=== PATIENT | male | born 1955 | race Caucasian/White ===

== ENCOUNTER → 2020-09-02 14:20 | Outpatient (BNVA) | payer OTHER, SELFPAY | PROVIDERS: PCP Student in an Organized Health Care Education/Training Program; Visit Provider Nurse Practitioner | DX: Z13.89 Encounter for screening for other disorder (principal) | CPT/HCPCS: Q3014 ==

== ENCOUNTER 2021-01-15 08:40 | Outpatient (REF) | payer OTHER, SELFPAY ==
[2021-01-15 10:35] LABS: PSA,Total (Free>4and<10) 12.81 ng/mL (0.00-4.00)
== END 2021-01-15 08:41 | disposition home or self-care (01) ==
LOC: HO.LAB 08:40
PROVIDERS: PCP Student in an Organized Health Care Education/Training Program; Visit Provider Urology
DX: R97.20 Elevated prostate specific antigen [PSA] (principal)
CPT/HCPCS: 36415; 84153

== ENCOUNTER 2021-03-06 08:02 | Outpatient (REF) | payer OTHER, SELFPAY | END 2021-03-06 08:03 | disposition home or self-care (01) | LOC: HO.LAB 08:02 | PROVIDERS: PCP Student in an Organized Health Care Education/Training Program; Visit Provider Urology | DX: R97.20 Elevated prostate specific antigen [PSA] (principal) | CPT/HCPCS: 36415; 84153 ==

== ENCOUNTER → 2021-03-12 15:53 | Outpatient (BNVA) | payer OTHER, SELFPAY | PROVIDERS: Visit Provider Urology | DX: Z13.89 Encounter for screening for other disorder (principal) | CPT/HCPCS: 99212 ==

== ENCOUNTER → 2021-03-21 14:45 | Outpatient (BNVA) | payer OTHER, SELFPAY | PROVIDERS: PCP Student in an Organized Health Care Education/Training Program; Visit Provider Nurse Practitioner | DX: D12.6 Benign neoplasm of colon, unspecified (principal); R14.0 Abdominal distension (gaseous); K59.04 Chronic idiopathic constipation; K21.9 Gastro-esophageal reflux disease without esophagitis | CPT/HCPCS: Q3014 ==

== ENCOUNTER 2021-07-10 08:38 | Outpatient (REF) | payer OTHER, SELFPAY ==
[2021-07-10 09:49] LABS: PSA,Total (Free>4and<10) 6.61 ng/mL (0.00-4.00)
[2021-07-11 11:22] LABS: Free Prostate Spec Ag 0.7 ng/mL; Percent Free Prostate Spec Ag 10 % (calc) (>25)
== END 2021-07-10 08:39 | disposition home or self-care (01) ==
LOC: HO.LAB 08:38
PROVIDERS: Visit Provider Urology
DX: Z12.5 Encounter for screening for malignant neoplasm of prostate (principal); N13.8 Other obstructive and reflux uropathy; N40.1 Benign prostatic hyperplasia with lower urinary tract symptoms; R97.20 Elevated prostate specific antigen [PSA]
CPT/HCPCS: 36415; 84153; 84154

== ENCOUNTER → 2021-12-26 15:16 | Outpatient (BNVA) | payer OTHER, SELFPAY | PROVIDERS: PCP Student in an Organized Health Care Education/Training Program; Visit Provider Urology | DX: N40.1 Benign prostatic hyperplasia with lower urinary tract symptoms (principal); N13.8 Other obstructive and reflux uropathy; R97.20 Elevated prostate specific antigen [PSA] | CPT/HCPCS: Q3014 ==

== ENCOUNTER 2022-01-01 10:57 | Outpatient (REF) | payer OTHER, SELFPAY ==
[2022-01-01 13:03] LABS: MANUAL DIFF FLAG NO
[2022-01-01 13:27] LABS: Basophils Percent Auto 0.4 % (0-2); Eosinophils Absolute Auto 0.4 X10*3/uL (0.0-0.4); Eosinophils Percent Auto 3.4 % (0-4); Hematocrit 38.8 % (42.0-52.0); Hemoglobin 12.7 g/dl (14.0-18.0); Imm Gran Abs Auto 0.03 X10*3/uL (0.00-0.03); Imm Gran Pct Auto 0.3 % (0.0-0.4); Lymphocytes Absolute Auto 3.7 X10*3/uL (1.2-4.9); Lymphocytes Percent Auto 35.9 % (20-40); Mean Corpuscular HGB Conc 32.7 g/dl (31.0-36.0); Mean Corpuscular Hemoglobin 28.7 pg (27.0-33.0); Mean Corpuscular Volume 87.6 fL (80.0-98.0); Mean Platelet Volume 9.9 fL (9.4-12.4); Monocytes Absolute Auto 0.6 X10*3/uL (0.1-1.2); Monocytes Percent Auto 5.7 % (2-11); Neutrophils Absolute Auto 5.6 x10*3/uL (2.0-8.3); Neutrophils Percent Auto 54.3 % (45-73); Platelet Count 363 X10*3/uL (160-400); Red Blood Count 4.43 X10*6/uL (4.60-5.80); Red Cell Distribution Width 15.9 % (11.0-16.0); White Blood Count 10.3 X10*3/uL (4.8-10.8)
[2022-01-01 13:58] LABS: Alanine Aminotransferase 24 U/L (0-40); Albumin Level 4.6 g/dL (3.5-5.0); Alkaline Phosphatase 103 U/L (39-117); Anion Gap 13 (12-20); Aspartate Amino Transferase 19 U/L (5-37); Bilirubin Total 0.2 mg/dL (0.0-1.0); Blood Urea Nitrogen 17 mg/dL (9-16); Calcium 10.8 mg/dL (8.4-10.2); Carbon Dioxide 29 mmol/L (22-29); Chloride 101 mmol/L (96-108); Estimated Glomerular Filt Rate > 60; Glucose Random 153 mg/dL (60-115); Sodium 138 mmol/L (135-145); Total Protein 7.6 g/dL (6.5-8.0)
== END 2022-01-01 10:58 | disposition home or self-care (01) ==
LOC: HO.LAB 10:57
PROVIDERS: PCP Student in an Organized Health Care Education/Training Program; Visit Provider Nurse Practitioner
DX: D12.6 Benign neoplasm of colon, unspecified (principal); K59.04 Chronic idiopathic constipation; K21.9 Gastro-esophageal reflux disease without esophagitis; Z12.11 Encounter for screening for malignant neoplasm of colon
CPT/HCPCS: 36415; 80053; 85025; 99212

== ENCOUNTER 2022-06-25 08:23 | Outpatient (REF) | payer OTHER, SELFPAY ==
[2022-06-25 10:00] LABS: PSA,Total (Free>4and<10) 9.34 ng/mL (0.00-4.00)
[2022-06-26 09:56] LABS: Free Prostate Spec Ag 0.9 ng/mL; Percent Free Prostate Spec Ag 10 % (calc) (>25); Prostate Specific Ag Total 9.1 ng/mL (< OR = 4.0)
== END 2022-06-25 08:24 | disposition home or self-care (01) ==
LOC: HO.LAB 08:23
PROVIDERS: PCP Student in an Organized Health Care Education/Training Program; Visit Provider Urology
DX: N40.1 Benign prostatic hyperplasia with lower urinary tract symptoms (principal); N13.8 Other obstructive and reflux uropathy; Z12.5 Encounter for screening for malignant neoplasm of prostate
CPT/HCPCS: 36415; 84153; 84154

== ENCOUNTER → 2022-06-30 13:29 | Outpatient (BNVA) | payer OTHER, SELFPAY | PROVIDERS: PCP Student in an Organized Health Care Education/Training Program; Visit Provider Urology | DX: N40.1 Benign prostatic hyperplasia with lower urinary tract symptoms (principal); N13.8 Other obstructive and reflux uropathy; R97.20 Elevated prostate specific antigen [PSA] | CPT/HCPCS: 51798; 99212 ==

== ENCOUNTER → 2022-07-09 16:11 | Outpatient (BNVA) | payer OTHER, SELFPAY | PROVIDERS: PCP Student in an Organized Health Care Education/Training Program; Visit Provider Nurse Practitioner | DX: K59.04 Chronic idiopathic constipation (principal); K21.9 Gastro-esophageal reflux disease without esophagitis; D12.6 Benign neoplasm of colon, unspecified | CPT/HCPCS: 99212 ==

== ENCOUNTER → 2022-10-14 11:34 | Outpatient (BNVA) | payer OTHER, SELFPAY | PROVIDERS: PCP Student in an Organized Health Care Education/Training Program; Visit Provider Nurse Practitioner | DX: K59.04 Chronic idiopathic constipation (principal); K21.9 Gastro-esophageal reflux disease without esophagitis; D12.6 Benign neoplasm of colon, unspecified; R14.0 Abdominal distension (gaseous) | CPT/HCPCS: 99212 ==

== ENCOUNTER 2022-12-03 08:53 | Day surgery (SDC) | payer OTHER, SELFPAY ==
[2022-12-03 09:15] VITALS: BP 175/102; PULSE 75; RESP 18; TEMP 36.6; O2SAT 97
[2022-12-03 09:20] VITALS: BMI 30.1
--- NOTE | 2022-12-03 09:20 | P.CONAN_ITS ---
HPI - Anesthesia Eval Consult details Narrative: screening [facility] Active Problems Active Problems: All Active Problems (Updated 11/27/22 @ 16:10 by Belkis Ruff, RN) GERD (gastroesophageal reflux disease) (Acute) Chronic idiopathic constipation (Acute) Tubular adenoma of colon (Acute) Abdominal bloating (Acute) Elevated PSA (Acute) BPH w urinary obs/LUTS (Acute) Past Medical History Medical History (Updated 11/27/22 @ 16:10 by Belkis Ruff RN) BPH loc w urin obs/LUTS Chronic gastritis Depression Elevated alkaline phosphatase level Elevated ferritin Elevated PSA Epidermal cyst Esophagitis Essential hypertension Gastroesophageal reflux disease without esophagitis Gout H. pylori infection Heartburn Hypercholesterolemia Insomnia On beta andrzej at home Tubular adenoma of colon Family History Family History Mother Alzheimer's disease Family history of problems with anesthesia: No Surgical History Surgical History History of ear surgery History of esophagogastroduodenoscopy (EGD) Hx of appendectomy Hx of colonoscopy History of Problems with Anesthesia: No Social History Social History Alcohol intake: current Alcohol intake frequency: does not drink Patient Tobacco Use Status: Former Tobacco user Quit Date: 5 years ago Use of substances other than those prescribed or required for medical reasons: No Are you DNR?: No Advance Directives: No Advance Directives Information Provided: Yes Meds Allergies Allergy/AdvReac Type Severity Reaction Status Date / Time No Known Allergies Allergy Verified 11/27/22 16:11 [No Known Allergies*] Home Medications Medication Instructions Recorded Confirmed Last Taken Type amitriptyline 50 mg tablet 50 mg PO BEDTIME 03/12/21 11/27/22 Unknown History ergocalciferol (vitamin D2) 1,250 1,250 mcg PO QWEEK 03/12/21 11/27/22 Unknown History mcg (50,000 unit) capsule gemfibrozil 600 mg tablet 600 mg PO QAM 03/12/21 11/27/22 Unknown History lisinopril 40 mg tablet 40 mg PO DAILY 03/12/21 11/27/22 Unknown History quetiapine 100 mg tablet 100 mg PO BEDTIME 03/12/21 11/27/22 Unknown History simvastatin 20 mg tablet 20 mg PO BEDTIME 03/12/21 11/27/22 Unknown History triamterene 37.5 1 tab PO QAM 03/12/21 06/30/22 Unknown History mg-hydrochlorothiazide 25 mg tablet metoprolol tartrate 100 mg tablet 100 mg PO DAILY 07/09/22 11/27/22 Unknown Hi story allopurinol 300 mg tablet 300 mg PO DAILY 10/14/22 11/27/22 Unknown History Exam Exam Date and Time: December 03, 2022 09 Height,Weight and Vital Signs: Height 5 ft 10 in Weight 95.254 kg Last Vital Signs Temp 97.8 F 12/03/22 09:15 Pulse 75 12/03/22 09:15 Resp 18 12/03/22 09:15 BP 175/102 H 12/03/22 09:15 Pulse Ox 97 12/03/22 09:15 O2 Del Method Room Air 12/03/22 09:15 Airway Mallampati Class: II TM Dist: >3cm Neck ROM: Full Loose/Missing/Broken Teeth: Yes (many) Heart: rrnl [id number] Lungs: cta Assessment and Plan Assessment Anesthesia Assessment: Anesthesia Plan Discussed Final Anesthetic Review Family History of Problems with Anesthesia: No History of Problems with Anesthesia: No NPO: Yes ASA Class: II Final Preanesthetic Review: No Changes in Pt Med Stat, Meds/Allgs Chart Reviewed, Consent Obtained/Reviewed and Anes Risks/Benef Reviewed Patient Risk: Low Procedure Risk: Low Anesthetic Plan Anesthetic Plan: MAC: Disposition: Standard PACU
[2022-12-03] MEDS: Lactated Ringers 1,000 ML 50 ML IVCONT (09:42)
[2022-12-03 10:30] VITALS: BP 114/73; PULSE 61; RESP 17; TEMP 36.4; O2SAT 100
[2022-12-03 10:45] VITALS: BP 126/68; PULSE 62; RESP 19; O2SAT 100
[2022-12-03 11:00] VITALS: BP 135/76; PULSE 63; RESP 17; TEMP 36.6; O2SAT 97
--- NOTE | 2022-12-03 13:57 | MHC.SHP ---
Pre-Procedural Eval Section A Date of Service: 12/03/22 Section B Chief Complaint: Personal hx of polyps Details of Present Illness: PMH: BPH loc w urin obs/LUTS Chronic gastritis Depression Elevated alkaline phosphatase level Elevated ferritin Elevated PSA Epidermal cyst Esophagitis Essential hypertension Gastroesophageal reflux disease without esophagitis Gout H. pylori infection Heartburn Hypercholesterolemia Insomnia Tubular adenoma of colon Surgical History: History of ear surgery History of esophagogastroduodenoscopy (EGD) Hx of appendectomy Hx of colonoscopy Present Medications: see Short Stay Collaborative assessment Allergies: Allergies Allergy/AdvReac Type Severity Reaction Status Date / Time No Known Allergies Allergy Verified 11/27/22 16:11 [No Known Allergies*] Review of Systems Review of Systems Comment: 10 point ROS negative Exam Exam Comment: Gen appear: No acute distress HEENT: no icterus Chest: No overt resp distress Abd: soft, nontender, nondistended Psych: Stable affect, answering questions appropriately Neuro: A/Ox3 noted to move all extremities spontaneously Ext: no peripheral edema Plan Diagnosis/Plan: Unchanged I have reviewed the history and physical and performed a pertinent physical examination on my patient. No changes have occurred unless specified. Time Spent With Patient Time: Total time managing care of this patient today ____ minutes.
--- NOTE | 2022-12-03 13:58 | P.OP_ITS ---
Operative Note Operative Note Date of Service: 12/03/22 Narrative: Procedure: Colonoscopy Indication: Personal history of polyps Endoscopist: Annabel Ryan MD Anesthesia Provider: Tova Willams CRNA Anesthesia type: MAC Instrument: Olympus [id number]-[id number] Consent: Indication, risks vs benefits, and alternatives were discussed with the patient who gave written informed consent to proceed. An laboratory geneticist was utilized to assist with the consent. EKG, pulse, pulse oximetry and blood pressure were monitored throughout the procedure. Please see anesthesia flowsheet. Procedure: The patient was brought to the procedure room and placed in the left lateral decubitus position. IV medications were administered by the anesthesia provider in attendance. A digital rectal exam was performed which was normal. A distal attachment cap was affixed to the tip of the scope and the colonoscope was then inserted through the anus and advanced through the colon to the cecum at 80 cm. Mucosa was carefully examined under high definition white light as the instrument was slowly withdrawn in a retrograde panoramic fashion. Retroflexion was performed in rectum. The procedure was not difficult. There were no immediate obvious complications. The quality of the prep was BBPS: 2+3+2 = adequate Withdrawal time 21 minutes. Limitations: No limitations. Findings: Mucosa: Normal to cecum. Protruding lesions: * 1 sessile polyp of size 4 mm in ascending colon. Cold snare polypectomy was performed. The polyp was completely removed and retrieved. * 1 sessile polyp of size 3 mm in transverse colon. Cold snare polypectomy was performed. The polyp was completely removed and retrieved. * 1 sessile polyp of size 3 mm in sigmoid colon. Cold forceps polypectomy was performed. The polyp was completely removed and retrieved. * Medium internal hemorrhoids without stigmata of recent bleeding. Impression: 1. Normal colon mucosa 2. Total of 3 polyps removed from ascending, transverse, and sigmoid colon. 3. Internal hemorrhoids Recommendations: - Follow path results. - Repeat colonoscopy in 3 to 5 years depending on results.
== END 2022-12-03 11:20 | disposition home or self-care (01) ==
PROVIDERS: PCP Student in an Organized Health Care Education/Training Program; Visit Provider Internal Medicine
PROC: 0DJD8ZZ Inspection of Lower Intestinal Tract, Via Natural or Artificial Opening Endoscopic (ICD-10-PCS; CPT 45378; principal; 2022-12-03 10:40)
DX: Z12.11 Encounter for screening for malignant neoplasm of colon (principal); Z86.010 Personal history of colon polyps; K59.04 Chronic idiopathic constipation; D12.2 Benign neoplasm of ascending colon; K63.5 Polyp of colon; K64.8 Other hemorrhoids; R14.0 Abdominal distension (gaseous); K21.9 Gastro-esophageal reflux disease without esophagitis; K29.50 Unspecified chronic gastritis without bleeding; E78.00 Pure hypercholesterolemia, unspecified; I10 Essential (primary) hypertension; M10.9 Gout, unspecified; Z79.899 Other long term (current) drug therapy; Z87.891 Personal history of nicotine dependence
CPT/HCPCS: 45385; 45380; 88305

== ENCOUNTER → 2022-12-17 10:45 | Outpatient (BNVA) | payer OTHER, SELFPAY | PROVIDERS: PCP Student in an Organized Health Care Education/Training Program; Visit Provider Nurse Practitioner | DX: K59.04 Chronic idiopathic constipation (principal); D12.2 Benign neoplasm of ascending colon; K21.9 Gastro-esophageal reflux disease without esophagitis; Z79.899 Other long term (current) drug therapy; Z98.890 Other specified postprocedural states | CPT/HCPCS: 99212 ==

== ENCOUNTER 2022-12-18 07:14 | Outpatient (REF) | payer OTHER, SELFPAY ==
[2022-12-18 08:41] LABS: PSA,Total (Free>4and<10) 10.79 ng/mL (0.00-4.00)
== END 2022-12-18 07:15 | disposition home or self-care (01) ==
LOC: HO.LAB 07:14
PROVIDERS: PCP Student in an Organized Health Care Education/Training Program; Visit Provider Urology
DX: Z12.5 Encounter for screening for malignant neoplasm of prostate (principal); R97.20 Elevated prostate specific antigen [PSA]
CPT/HCPCS: 36415; 84153

== ENCOUNTER → 2022-12-22 12:41 | Outpatient (BNVA) | payer OTHER, SELFPAY | PROVIDERS: PCP Student in an Organized Health Care Education/Training Program; Visit Provider Surgery | DX: Z01.818 Encounter for other preprocedural examination (principal); L72.0 Epidermal cyst | CPT/HCPCS: 99202 ==

== ENCOUNTER → 2022-12-29 09:24 | Outpatient (BNVA) | payer OTHER, SELFPAY | PROVIDERS: PCP Student in an Organized Health Care Education/Training Program; Visit Provider Urology | DX: R97.20 Elevated prostate specific antigen [PSA] (principal); N40.1 Benign prostatic hyperplasia with lower urinary tract symptoms; N13.8 Other obstructive and reflux uropathy | CPT/HCPCS: Q3014 ==

== ENCOUNTER 2023-01-06 06:50 | Day surgery (SDC) | payer OTHER, SELFPAY ==
[2023-01-01 11:01] VITALS: BMI 32.1
--- NOTE | 2023-01-05 08:05 | MHC.SHP ---
Pre-Procedural Eval Section A Date of Service: 01/05/23 The patient is an INPATIENT: No Changes since office visit: No Cold of Flu in the past 2 weeks, No New Medical Problems, No Changes in Medication and No Patient answered all questions The History & Physical has been completed within 30 days and I have reviewed it.: Yes Section B Chief Complaint: Epidermal cyst Allergies: Allergies Allergy/AdvReac Type Severity Reaction Status Date / Time No Known Allergies Allergy Verified 12/29/22 09:26 [No Known Allergies*] Plan I have reviewed the history and physical and performed a pertinent physical examination on my patient. No changes have occurred unless specified. Time Spent With Patient Time: Total time managing care of this patient today ____ minutes.
--- NOTE | 2023-01-05 12:27 | HO.ANESPROP2 ---
Documented by User: Carmen Crowder NP 01/05/23 12:28 HPI - Anesthesia Eval Consult details Narrative: 67yo M for Left Excision recurrent mid back Mass PMFSH Active Problems Active Problems: All Active Problems (Updated 12/22/22 @ 17:26 by CHARITY Leija) GERD (gastroesophageal reflux disease) (Acute) Chronic idiopathic constipation (Acute) Tubular adenoma of colon (Acute) Abdominal bloating (Acute) Elevated PSA (Acute) BPH w urinary obs/LUTS (Acute) EIC (epidermal inclusion cyst) (Acute) Past Medical History Medical History (Updated 12/22/22 @ 17:26 by CHARITY Leija) BPH loc w urin obs/LUTS Chronic gastritis Depression Elevated alkaline phosphatase level Elevated ferritin Elevated PSA Epidermal cyst Esophagitis Essential hypertension Gastroesophageal reflux disease without esophagitis Gout H. pylori infection Heartburn Hypercholesterolemia Insomnia On beta andrzej at home Tubular adenoma of colon Family History Family History Mother Alzheimer's disease Family history of problems with anesthesia: No Surgical History Surgical History (Updated 01/01/23 @ 10:58 by Isabel Baker RN) History of ear surgery History of esophagogastroduodenoscopy (EGD) Hx of appendectomy Hx of colonoscopy History of Problems with Anesthesia: No Social History Social History Alcohol intake: current Alcohol intake frequency: holidays/special occasions only Patient Tobacco Use Status: Former Tobacco user Quit Date: 5 years ago Use of substances other than those prescribed or required for medical reasons: No Are you DNR?: No Advance Directives: No Advance Directives Information Provided: Yes Meds Allergies Allergy/AdvReac Type Severity Reaction Status Date / Time No Known Allergies Allergy Verified 12/29/22 09:26 [No Known Allergies*] Home Medications Medication Instructions Recorded Confirmed Last Taken Type amitriptyline 50 mg tablet 50 mg PO BEDTIME 03/12/21 01/01/23 Unknown History ergocalciferol (vitamin D2) 1,250 1,250 mcg PO QWEEK 03/12/21 01/01/23 Unknown History mcg (50,000 unit) capsule gemfibrozil 600 mg tablet 600 mg PO QAM 03/12/21 01/01/23 Unknown History lisinopril 40 mg tablet 40 mg PO DAILY 03/12/21 01/01/23 Unknown History quetiapine 100 mg tablet 100 mg PO BEDTIME 03/12/21 01/01/23 Unknown History simvastatin 20 mg tablet 20 mg PO BEDTIME 03/12/21 01/01/23 Unknown History triamterene 37.5 1 tab PO QAM 03/12/21 12/29/22 Unknown History mg-hydrochlorothiazide 25 mg tablet metoprolol tartrate 100 mg tablet 100 mg PO DAILY 07/09/22 01/01/23 01/06/23 History allopurinol 300 mg tablet 300 mg PO DAILY 10/14/22 01/01/23 Unknown History Exam Exam Date and Time: January 05, 2023 1227 Height,Weight and Vital Signs: Height 5 ft 8 in Weight 95.708 kg Assessment and Plan Assessment Anesthesia Assessment: Chart Reviewed Final Anesthetic Review Family History of Problems with Anesthesia: No History of Problems with Anesthesia: No Documented by User: Abdullahi Cruz MD 01/06/23 08:22 [facility] Past Medical History Medical History (Updated 12/22/22 @ 17:26 by CHARITY Leija) BPH loc w urin obs/LUTS Chronic gastritis Depression Elevated alkaline phosphatase level Elevated ferritin Elevated PSA Epidermal cyst Esophagitis Essential hypertension Gastroesophageal reflux disease without esophagitis Gout H. pylori infection Heartburn Hypercholesterolemia Insomnia On beta andrzej at home Tubular adenoma of colon Family History Family History Mother Alzheimer's disease Surgical History Surgical History (Updated 01/01/23 @ 10:58 by Isabel Baker RN) History of ear surgery History of esophagogastroduodenoscopy (EGD) Hx of appendectomy Hx of colonoscopy Social History Social History Alcohol intake: current Alcohol intake frequency: holidays/special occasions only Patient Tobacco Use Status: Former Tobacco user Quit Date: 5 years ago Use of substances other than those prescribed or required for medical reasons: No Are you DNR?: No Advance Directives: No Advance Directives Information Provided: Yes Meds Allergies Allergy/AdvReac Type Severity Reaction Status Date / Time No Known Allergies Allergy Verified 12/29/22 09:26 [No Known Allergies*] Home Medications Medication Instructions Recorded Confirmed Last Taken Type amitriptyline 50 mg tablet 50 mg PO BEDTIME 03/12/21 01/01/23 Unknown History ergocalciferol (vitamin D2) 1,250 1,250 mcg PO QWEEK 03/12/21 01/01/23 Unknown History mcg (50,000 unit) capsule gemfibrozil 600 mg tablet 600 mg PO QAM 03/12/21 01/01/23 Unknown History lisinopril 40 mg tablet 40 mg PO DAILY 03/12/21 01/01/23 Unknown History quetiapine 100 mg tablet 100 mg PO BEDTIME 03/12/21 01/01/23 Unknown History simvastatin 20 mg tablet 20 mg PO BEDTIME 03/12/21 01/01/23 Unknown History triamterene 37.5 1 tab PO QAM 03/12/21 12/29/22 Unknown History mg-hydrochlorothiazide 25 mg tablet metoprolol tartrate 100 mg tablet 100 mg PO DAILY 07/09/22 01/01/23 01/06/23 History allopurinol 300 mg tablet 300 mg PO DAILY 10/14/22 01/01/23 Unknown History Exam Airway Mallampati Class: II TM Dist: >3cm Neck ROM: Full Heart: rrr Lungs: cta Assessment and Plan Assessment Anesthesia Assessment: Anesthesia Plan Discussed Final Anesthetic Review NPO: Yes ASA Class: II Final Preanesthetic Review: No Changes in Pt Med Stat, Meds/Allgs Chart Reviewed, Consent Obtained/Reviewed and Anes Risks/Benef Reviewed Patient Risk: Intermediate Procedure Risk: Low Anesthetic Plan Anesthetic Plan: MAC: Disposition: Standard PACU
[2023-01-06 07:49] VITALS: BP 164/97; PULSE 68; RESP 16; TEMP 36.3; O2SAT 97
[2023-01-06] MEDS: Lactated Ringers 1,000 ML 100 ML IVCONT (08:26)
[2023-01-06 09:00] VITALS: BP 126/79; PULSE 65; RESP 20; TEMP 36.3; O2SAT 98
--- NOTE | 2023-01-06 09:02 | P.OP_ITS ---
Operative Note Operative Note Date of Service: 01/06/23 Narrative: Preoperative diagnosis: [] Recurrence left upper back sebaceous cyst Postop diagnosis: [] Same Procedure [] excision recurrence left upper back sebaceous cyst Surgeon: [] Stanley Internal Security Manager: [] Type of Anesthesia: [] MAC Indication for surgery: [] Final specimen measured approximately 6 x 3 cm consistent with a recurrence left upper back sebaceous cyst. Findings: [] Patient brought to operating room, placed on aspirin table supine position, after adequate level of MAC anesthesia and local infiltration was induced, patient was placed in the right lateral decubitus position. The left mid back was prepped and draped in usual sterile fashion. Using a transverse by elliptical incision encompassing the recurrence cyst along with the prior scar, this carried down through skin, subcutaneous tissue, were superior and inferior skin flaps were developed using Bovie. Specimen was excised and sent to pathology . Final size measured approximately 6 x 3 cm. Wound was irrigated, secured hemostasis, and closed using interrupted inverted dermal 3-0 Vicryl sutures followed by Steri-Strips and sterile dressings. Sponge, needle, and instrument counts were reported to be correct. Patient tolerated the procedure well and emerged anesthesia stable condition. EBL minimal
[2023-01-06 09:15] VITALS: BP 127/74; PULSE 62; RESP 20; O2SAT 98
[2023-01-06 09:30] VITALS: BP 143/80; PULSE 61; RESP 20; O2SAT 98
== END 2023-01-06 10:15 | disposition home or self-care (01) ==
PROVIDERS: PCP Student in an Organized Health Care Education/Training Program; Visit Provider Surgery
PROC: (CPT 11406; principal; 2023-01-06 08:40)
DX: L72.3 Sebaceous cyst (principal); I10 Essential (primary) hypertension
CPT/HCPCS: 11406; 88304; J0690; J2250; J3010

== ENCOUNTER → 2023-01-13 08:40 | Outpatient (BNVA) | payer OTHER, SELFPAY | PROVIDERS: PCP Student in an Organized Health Care Education/Training Program; Visit Provider Surgery | DX: L72.0 Epidermal cyst (principal) | CPT/HCPCS: 99212 ==

== ENCOUNTER → 2023-01-19 11:39 | Outpatient (BNVA) | payer OTHER, SELFPAY | PROVIDERS: PCP Student in an Organized Health Care Education/Training Program; Visit Provider Nurse Practitioner | DX: K59.04 Chronic idiopathic constipation (principal); K21.9 Gastro-esophageal reflux disease without esophagitis | CPT/HCPCS: 99212 ==

== ENCOUNTER → 2023-02-26 13:08 | Outpatient (BNVA) | payer OTHER, SELFPAY | PROVIDERS: PCP Student in an Organized Health Care Education/Training Program; Visit Provider Urology | DX: N40.1 Benign prostatic hyperplasia with lower urinary tract symptoms (principal); N13.8 Other obstructive and reflux uropathy; R97.20 Elevated prostate specific antigen [PSA] | CPT/HCPCS: 51798; 99212 ==